=== PATIENT | male | born 1980 | race Caucasian/White ===

== ENCOUNTER 2022-07-28 07:30 | Day surgery (SDC) | payer BC, OTHER ==
[~2022-07-28 07:30] MED LIST: Bupivacaine 0.25% 10 ML SDV ONE; EPINEPHrine 1 MG/ML 30 ML MDV IRR SCH; Lactated Ringers 1,000 ML IV SCH; Lidocaine 1%/Sod Bicarbonate in NS 8.4% 1 ML Syringe IDERM PRN; Ropivacaine 0.5% 5 MG/ML 30 ML SDV ONE; Sugammadex Sodium 200 MG/2 ML VIAL ONE
[2022-07-28] MEDS ORDERED: fentaNYL 100 MCG/2 ML SDV IVPUSH PRN (07:38)
[2022-07-28] MEDS ORDERED: Ondansetron 4 MG/2 ML SDV IVPUSH PRN (07:38)
[2022-07-28] MEDS ORDERED: HYDROmorphone 0.5 MG/0.5 ML Syringe IVPUSH PRN (07:38)
[2022-07-28] MEDS ORDERED: Ondansetron 4 MG/2 ML SDV ONE (07:45)
[2022-07-28] MEDS ORDERED: ceFAZolin 2 GM Vial ONE (07:45)
[2022-07-28] MEDS ORDERED: Ketorolac 30 MG/ML SDV ONE (07:45)
[2022-07-28] MEDS ORDERED: Lidocaine 1% 2 ML ONE (07:45)
[2022-07-28] MEDS ORDERED: fentaNYL 100 MCG/2 ML SDV ONE (07:45)
[2022-07-28] MEDS ORDERED: Propofol 200 MG/20 ML SDV ONE (07:45)
[2022-07-28] MEDS ORDERED: Acetaminophen/HYDROcodone 325-5 MG Tab PO PRN (08:36)
[2022-07-28] MEDS ORDERED: Sodium Chloride 0.9% 10 ML Syringe FLUSH SCH (09:00)
[2022-07-28] MEDS ORDERED: Midazolam 1 MG/ML 2 ML SDV ONE (09:09)
[2022-07-28] MEDS ORDERED: Dexamethasone 4 MG/ML 5 ML MDV ONE (09:55)
[2022-07-28] MEDS ORDERED: Lactated Ringers 1,000 ML ONE (10:22)
[2022-07-28] MEDS ORDERED: Acetaminophen/HYDROcodone 325-5 MG Tab PO ONE (10:57)
== END 2022-07-28 11:45 | disposition home or self-care (01) ==
LOC: JD.SDS 07:30
PROVIDERS: ATTEND Orthopaedic Surgery
DX: S83.242A Other tear of medial meniscus, current injury, left knee, initial encounter (principal); M22.42 Chondromalacia patellae, left knee
CPT/HCPCS: 29881; A9270; J0171; J0690; J1100; J1885; J2250; J2405; J2704; J2795; J3010; J3490; J7120; 01400